=== PATIENT | male | born 1985 | race Caucasian/White ===

== ENCOUNTER 2018-05-03 17:54 | Emergency (ER) | payer OTHER ==
[2018-05-03 18:03] VITALS: BP 119/71; PULSE 77; RESP 18; TEMP 98.6
--- NOTE | 2018-05-03 18:36 | XR ---
EXAMINATION TYPE: XR wrist complete RT DATE OF EXAM: 05/03/2018 CLINICAL HISTORY: Right wrist pain after punching a door TECHNIQUE: Frontal, lateral and oblique images of the right wrist are obtained. COMPARISON: None FINDINGS: There is no acute fracture/dislocation evident in the right wrist. The joint spaces appea r within normal limits. The overlying soft tissue appears unremarkable. Remote fracture of the dista l radius. IMPRESSION: There is no acute fracture or dislocation
--- NOTE | 2018-05-03 18:37 | XR ---
EXAMINATION TYPE: XR hand complete RT DATE OF EXAM: 05/03/2018 CLINICAL HISTORY: Right hand pain after punching a door TECHNIQUE: Frontal, lateral and oblique images of the right hand are obtained. COMPARISON: None. FINDINGS: There is no acute fracture/dislocation evident. The joint spaces appear within normal limi ts. The overlying soft tissue appears unremarkable. IMPRESSION: There is no acute fracture or dislocation.
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
== END 2018-05-03 18:58 | disposition home or self-care (01) ==
LOC: EC 17:54
DX: S60.221A Contusion of right hand, initial encounter (principal); F17.200 Nicotine dependence, unspecified, uncomplicated; W22.01XA Walked into wall, initial encounter
CPT/HCPCS: 29125; 99283

== ENCOUNTER 2019-02-01 16:32 | Emergency (ER) | payer OTHER ==
[2019-02-01] MEDS ORDERED: KETOROLAC 30 MG/ML 1 ML VIAL IVP STA (16:55)
[2019-02-01] MEDS ORDERED: SODIUM CHLORIDE 0.9% 1,000 ML IV STA (16:55)
--- NOTE | 2019-02-01 17:02 | ED ---
Chest Pain HPI - General Chief Complaint: Chest Pain Stated Complaint: chest pain Time Seen by Provider: 02/01/19 16:44 Source: patient, RN notes reviewed Mode of arrival: ambulatory Limitations: no limitations - History of Present Illness Initial Comments: This is a 33-year-old male with a benign past history but a family history of heart disease whereby he states his biological father in his 40s of an AL who presents with complaints of about 3 weeks of intermittent episodes of sharp poking light left-sided chest pain. Several lists I was not left side of his shoulder and axillary area into his chest and down his left arm. He sees nothing he can do makes it worse or better he denies any fevers chills nausea vomiting sweats any loss of function to his upper or lower extremities he states at its worse is 10/10 currently about 8/10. He states he is able to reproduce it by pushing in certain areas which does include the left costal chondral margin as well as the pectoralis muscles and trapezius musculature. 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 He is dominant right-handed no other modifying factors at this time. MD Complaint: chest pain - Related Data Home Medications Medication Instructions Recorded Confirmed Aspirin 650 mg PO ONCE PRN 02/01/19 02/01/19 Previous Rx's Medication Instructions Recorded Ibuprofen 800 mg PO Q6HR PRN #20 tablet 02/01/19 Allergies Allergy/AdvReac Type Severity Reaction Status Date / Time No Known Allergies Allergy Verified 02/01/19 16:43 Review of Systems ROS Statement: Those systems with pertinent positive or pertinent negative responses have been documented in the HPI. ROS Other: All systems not noted in ROS Statement are negative. EKG Findings - EKG Results: EKG: interpreted by [facility] WNL, sinus rhythm, normal axis, normal QRS, normal ST/T, no acute changes (Normal sinus rhythm a 73 appear interval 134 QRS duration 84 QT since QTC 374/[address]-T wave changes.) Past Medical History Past Medical History: No Reported History History of Any Multi-Drug Resistant Organisms: None Reported Past Surgical History: No Surgical Hx Reported Past Psychological History: No Psychological Hx Reported Smoking Status: Current every day smoker Past Alcohol Use History: Occasional Past Drug Use History: Marijuana General Exam Limitations: no limitations Course Vital Signs 02/01/19 02/01/19 16:34 17:36 Temperature 98.5 F 98.4 F Pulse Rate 83 65 Respiratory 16 20 Rate Blood Pressure 132/80 123/86 O2 Sat by Pulse 96 97 Oximetry Procedures - Smoking Cessation Time Spent Discussing Smoking Cessation w/Patient (Minutes): 3 Patient Acknowledges Need for Cessation: Yes Chest Pain MDM - MDM I did review the imaging and report no acute findings. Patient is feeling improved after medication was rendered the presentation at this time is consistent with musculoskeletal chest pain. He will be discharged I did recommend follow-up with cardiology for further evaluation however. He is in agreement with this also did discuss smoking cessation again. Disposition Clinical Impression: Unstable angina pectoris, Costochondritis, Smoking Disposition: HOME SELF-CARE Condition: Good Instructions (If sedation given, give patient instructions): Costochondritis (ED), How to Stop Smoking (ED) Prescriptions: Ibuprofen 800 mg PO Q6HR PRN #20 tablet PRN Reason: Pain Is patient prescribed a controlled substance at d/c from ED?: No Referrals: None,Stated [Primary Care Provider] - 1-2 days
[2019-02-01 17:29] LABS: Basophils # (A) 0.2 k/uL (0-0.2); Basophils % (A) 2 %; Eosinophils # (A) 0.3 k/uL (0-0.7); Eosinophils % (A) 4 %; HCT 45.9 % (39.0-53.0); HGB 16.2 gm/dL (13.0-17.5); Lymphocytes # (A) 1.7 k/uL (1.0-4.8); Lymphocytes % (A) 25 %; MCH 32.3 pg (25.0-35.0); MCHC 35.3 g/dL (31.0-37.0); MCV 91.4 fL (80.0-100.0); Mean Platelet Volume 6.8; Monocytes # (A) 0.5 k/uL (0-1.0); Monocytes % (A) 8 %; Neutrophils % (A) 58 %; Platelet Count 343 k/uL (150-450); RBC 5.03 m/uL (4.30-5.90); RDW 12.3 % (11.5-15.5); WBC 6.9 k/uL (3.8-10.6)
[2019-02-01 17:41] LABS: ALT 19 U/L (21-72); AST 32 U/L (17-59); African American GFR (CKD) >90 (>60 ml/min/1.73 sqM); Albumin 4.5 g/dL (3.5-5.0); Alkaline Phosphatase 53 U/L (38-126); Anion Gap 10 mmol/L; Blood Urea Nitrogen 17 mg/dL (9-20); Calcium 9.6 mg/dL (8.4-10.2); Carbon Dioxide 22 mmol/L (22-30); Chloride 106 mmol/L (98-107); Creatine Kinase 196 U/L (55-170); Glucose 99 mg/dL (74-99); Magnesium 2.1 mg/dL (1.6-2.3); Sodium 138 mmol/L (137-145); Total Bilirubin 0.7 mg/dL (0.2-1.3); Total Protein 7.4 g/dL (6.3-8.2)
[2019-02-01 17:45] VITALS: TEMP 98.4
[2019-02-01 17:46] LABS: Potassium 4.4 mmol/L (3.5-5.1)
[2019-02-01 17:48] LABS: D-Dimer <0.17 mg/L FEU (<0.60); Partial Thromboplastin Time 22.5 sec (22.0-30.0); Prothrombin Time 10.3 sec (9.0-12.0)
--- NOTE | 2019-02-01 17:53 | XR ---
EXAMINATION TYPE: XR chest 2V DATE OF EXAM: 02/01/2019 COMPARISON: None HISTORY: Chest pain TECHNIQUE: Frontal and lateral views of the chest are obtained. FINDINGS: Heart and mediastinum are normal. Lungs are clear. Diaphragm is normal. Bony thorax appear s normal. There are chest leads. IMPRESSION: Normal chest
[2019-02-01 19:11] VITALS: BP 124/87; PULSE 62; RESP 18
--- NOTE | 2019-02-01 19:13 | ED ---
Medical Decision Making - Lab Data Result diagrams: 02/01/19 17:15 02/01/19 17:15 Lab Results 02/01/19 02/01/19 02/01/19 Range/Units 17:15 17:15 17:15 WBC 6.9 (3.8-10.6) k/uL RBC 5.03 (4.30-5.90) m/uL Hgb 16.2 (13.0-17.5) gm/dL Hct 45.9 (39.0-53.0) % MCV 91.4 (80.0-100.0) fL MCH 32.3 (25.0-35.0) pg MCHC 35.3 (31.0-37.0) g/dL RDW 12.3 (11.5-15.5) % Plt Count 343 (150-450) k/uL Neutrophils % 58 % Lymphocytes % 25 % Monocytes % 8 % Eosinophils % 4 % Basophils % 2 % Neutrophils # 4.0 (1.3-7.7) k/uL Lymphocytes # 1.7 (1.0-4.8) k/uL Monocytes # 0.5 (0-1.0) k/uL Eosinophils # 0.3 (0-0.7) k/uL Basophils # 0.2 (0-0.2) k/uL PT 10.3 (9.0-12.0) sec INR 1.0 (<1.2) APTT 22.5 (22.0-30.0) sec D-Dimer <0.17 (<0.60) mg/L FEU Sodium 138 (137-145) mmol/L Potassium 4.4 (3.5-5.1) mmol/L Chloride 106 (98-107) mmol/L Carbon Dioxide 22 (22-30) mmol/L Anion Gap 10 mmol/L BUN 17 (9-20) mg/dL Creatinine 0.83 (0.66-1.25) mg/dL Est GFR (CKD-EPI)AfAm >90 (>60 ml/min/1.73 sqM) Est GFR (CKD-EPI)NonAf >90 (>60 ml/min/1.73 sqM) Glucose 99 (74-99) mg/dL Calcium 9.6 (8.4-10.2) mg/dL Magnesium 2.1 (1.6-2.3) mg/dL Total Bilirubin 0.7 (0.2-1.3) mg/dL AST 32 (17-59) U/L ALT 19 L (21-72) U/L Alkaline Phosphatase 53 (38-126) U/L Creatine Kinase 196 H (55-170) U/L Troponin I (0.000-0.034) ng/mL NT-Pro-B Natriuret Pep pg/mL Total Protein 7.4 (6.3-8.2) g/dL Albumin 4.5 (3.5-5.0) g/dL Lipase 109 (23-300) U/L 02/01/19 02/01/19 Range/Units 17:15 17:15 WBC (3.8-10.6) k/uL RBC (4.30-5.90) m/uL Hgb (13.0-17.5) gm/dL Hct (39.0-53.0) % MCV (80.0-100.0) fL MCH (25.0-35.0) pg MCHC (31.0-37.0) g/dL RDW (11.5-15.5) % Plt Count (150-450) k/uL Neutrophils % % Lymphocytes % % Monocytes % % Eosinophils % % Basophils % % Neutrophils # (1.3-7.7) k/uL Lymphocytes # (1.0-4.8) k/uL Monocytes # (0-1.0) k/uL Eosinophils # (0-0.7) k/uL Basophils # (0-0.2) k/uL PT (9.0-12.0) sec INR (<1.2) APTT (22.0-30.0) sec D-Dimer (<0.60) mg/L FEU Sodium (137-145) mmol/L Potassium (3.5-5.1) mmol/L Chloride (98-107) mmol/L Carbon Dioxide (22-30) mmol/L Anion Gap mmol/L BUN (9-20) mg/dL Creatinine (0.66-1.25) mg/dL Est GFR (CKD-EPI)AfAm (>60 ml/min/1.73 sqM) Est GFR (CKD-EPI)NonAf (>60 ml/min/1.73 sqM) Glucose (74-99) mg/dL Calcium (8.4-10.2) mg/dL Magnesium (1.6-2.3) mg/dL Total Bilirubin (0.2-1.3) mg/dL AST (17-59) U/L ALT (21-72) U/L Alkaline Phosphatase (38-126) U/L Creatine Kinase (55-170) U/L Troponin I <0.012 (0.000-0.034) ng/mL NT-Pro-B Natriuret Pep 27 pg/mL Total Protein (6.3-8.2) g/dL Albumin (3.5-5.0) g/dL Lipase (23-300) U/L Disposition Clinical Impression: Unstable angina pectoris, Costochondritis, Smoking Disposition: HOME SELF-CARE Condition: Good Instructions (If sedation given, give patient instructions): How to Stop Smoking (ED), Costochondritis (ED) Prescriptions: Ibuprofen 800 mg PO Q6HR PRN #20 tablet PRN Reason: Pain Is patient prescribed a controlled substance at d/c from ED?: No Referrals: None,Stated [Primary Care Provider] - 1-2 days El Shearer MD [STAFF PHYSICIAN] - 1-2 days
== END 2019-02-01 19:16 | disposition home or self-care (01) ==
LOC: EC 16:32
DX: I20.0 Unstable angina (principal); M94.0 Chondrocostal junction syndrome [Tietze]; F17.200 Nicotine dependence, unspecified, uncomplicated; Z71.6 Tobacco abuse counseling
CPT/HCPCS: 36415; 93005; 85379; 83880; 80053; 82550; 83690; 83735; 84484; 85025; 85610; 85730; 71046; 99285; 96374; 96361 ×2; J1885

== ENCOUNTER 2019-06-01 22:36 | Inpatient (IN) | payer MEDICAID, OTHER ==
--- NOTE | 2019-06-01 23:00 | ED ---
Psych HPI - General Chief Complaint: Psychiatric Symptoms Stated Complaint: Mental Health Time Seen by Provider: 06/01/19 22:43 Source: patient Mode of arrival: ambulatory - History of Present Illness Initial Comments: This 34-year-old white male presents for psychiatric issues. He states that he has been very paranoid recently. He has felt very anxious and has had flight of thoughts. He states that he moved into a house that used to be a drug/chair when house and has been cleaning excessively. He has barely been able to sleep. He denies any depression or suicidal or homicidal ideations. He states that he has been hearing some voices and is convinced that they are really there. He denies any visual hallucinations. He denies any alcohol abuse. He does smoke tobacco and marijuana but denies any other drug use. He denies any known psychiatric conditions and does not take any psychiatric medications. He states that he had one previous hospitalization when he was 21 years old after he apparently experimented with some cocaine. He denies any current medical issues. No other modifying factors or complaints. - Related Data Home Medications Medication Instructions Recorded Confirmed Aspirin 650 mg PO ONCE PRN 02/01/19 02/01/19 Previous Rx's Medication Instructions Recorded Ibuprofen 800 mg PO Q6HR PRN #20 tablet 02/01/19 Allergies Allergy/AdvReac Type Severity Reaction Status Date / Time No Known Allergies Allergy Verified 02/01/19 16:43 Review of Systems ROS Statement: Those systems with pertinent positive or pertinent negative responses have been documented in the HPI. ROS Other: All systems not noted in ROS Statement are negative. Past Medical History Past Medical History: No Reported History History of Any Multi-Drug Resistant Organisms: None Reported Past Surgical History: No Surgical Hx Reported Additional Past Surgical History / Comment(s): tendon surgery Past Psychological History: ADD/ADHD, PTSD Smoking Status: Current every day smoker Past Alcohol Use History: Occasional Past Drug Use History: Marijuana General Exam - General Exam Comments Initial Comments: GENERAL: The patient is well nourished and well hydrated. VITAL SIGNS: Heart rate, blood pressure, respiratory rate reviewed as recorded in nurse's notes. EYES: Pupils are round and reactive. Extraocular movements are intact. No conjunctival / lid redness or swelling. ENT: No external evidence of injury, swelling, or ecchymosis. Airway is patent. Throat is clear. NECK: Nontender. No swelling or evidence of injury. No subcutaneous emphysema. Trachea is midline. No thyroid mass. HEART: Regular rate and rhythm. Good peripheral pulses. LUNGS/CHEST: Breath sounds clear and equal bilaterally. No rales, rhonchi, or wheezes. No ecchymosis, subcutaneous emphysema, or tenderness. ABDOMEN: Abdomen soft without tenderness. No palpable masses or organomegaly. No peritoneal signs. No abdominal wall swelling or ecchymosis. EXTREMITIES: No extremity tenderness. Normal muscle tone and function. No thoracolumbar tenderness. NEUROLOGIC: Sensation is grossly intact. Cranial nerve exam reveals face is symmetrical, tongue is midline, speech is clear. SKIN: No abrasions or ecchymosis is noted. No induration or masses noted. PSYCHIATRIC: Alert and oriented. Appears anxious but is cooperative. Limitations: no limitations Course Vital Signs 06/01/19 22:37 Temperature 98.1 F Pulse Rate 100 Respiratory 16 Rate Blood Pressure 146/88 O2 Sat by Pulse 97 Oximetry Medical Decision Making - Medical Decision Making The patient is seen and examined. He had a negative breath alcohol test. It is felt as though he is medically cleared for further psychiatric evaluation. The urine drug screen is positive for marijuana and amphetamines. The patient is sleeping on recheck. The psychiatric nurse did evaluate the patient and they would like to admit him to the hospital for further treatment. It is felt as though this is reasonable. - Lab Data Lab Results 06/01/19 Range/Units 22:47 Urine Opiates Screen Not Detected (NotDetected) Ur Oxycodone Screen Not Detected (NotDetected) Urine Methadone Screen Not Detected (NotDetected) Ur Propoxyphene Screen Not Detected (NotDetected) Ur Barbiturates Screen Not Detected (NotDetected) U Tricyclic Antidepress Not Detected (NotDetected) Ur Phencyclidine Scrn Not Detected (NotDetected) Ur Amphetamines Screen Detected H (NotDetected) U Methamphetamines Scrn Not Detected (NotDetected) U Benzodiazepines Scrn Not Detected (NotDetected) Urine Cocaine Screen Not Detected (NotDetected) U Marijuana (THC) Screen Detected H (NotDetected) Disposition Clinical Impression: Acute anxiety, Psychosis, Paranoia, Marijuana abuse, Amphetamine abuse Disposition: ADMITTED IP TO THIS HOSP Condition: Fair Is patient prescribed a controlled substance at d/c from ED?: No Time of Disposition: : Decision Date: 06/02/19 Decision Time:
[2019-06-01 23:20] LABS: Amphetamine Screen,Urine Detected (NotDetected); Cocaine Screen,Urine Not Detected (NotDetected); Opiate Screen,Urine Not Detected (NotDetected); Phencyclidine Screen,Urine Not Detected (NotDetected); Urn Cannabinoid Scrn Detected (NotDetected)
[2019-06-01 23:21] LABS: Barbiturate Screen,Urine Not Detected (NotDetected); Benzodiazepines Screen,Urine Not Detected (NotDetected); Methadone Screen, Urine Not Detected (NotDetected); Oxycodone Screen, Urine Not Detected (NotDetected); Tricyclic Antidepressant,Urine Not Detected (NotDetected)
[2019-06-02] MEDS ORDERED: LORazepam 1 MG TAB PO PRN (02:01)
[2019-06-02] MEDS ORDERED: MAG HYDROX/AL HYDROX/SIMETH 30 ML CUP PO PRN (02:01)
[2019-06-02] MEDS ORDERED: ZIPRASIDONE 20 MG VIAL IM PRN (02:01)
[2019-06-02] MEDS ORDERED: ACETAMINOPHEN TAB 325 MG TAB PO PRN (02:01)
[2019-06-02] MEDS ORDERED: MAGNESIUM HYDROXIDE 2,400 MG/10 ML CUP PO PRN (02:01)
[2019-06-02 08:09] LABS: Basophils # (A) 0.1 k/uL (0-0.2); Basophils % (A) 1 %; Eosinophils # (A) 0.6 k/uL (0-0.7); Eosinophils % (A) 5 %; HCT 48.5 % (39.0-53.0); HGB 16.4 gm/dL (13.0-17.5); Lymphocytes % (A) 16 %; MCH 31.1 pg (25.0-35.0); MCHC 33.9 g/dL (31.0-37.0); MCV 91.7 fL (80.0-100.0); Mean Platelet Volume 6.6; Monocytes # (A) 0.8 k/uL (0-1.0); Monocytes % (A) 7 %; Neutrophils # (A) 8.3 k/uL (1.3-7.7); Neutrophils % (A) 69 %; Platelet Count 399 k/uL (150-450); RBC 5.29 m/uL (4.30-5.90); RDW 12.3 % (11.5-15.5)
[2019-06-02 08:28] LABS: ALT 64 U/L (4-49); AST 83 U/L (17-59); African American GFR (CKD) >90 (>60 ml/min/1.73 sqM); Albumin 4.8 g/dL (3.5-5.0); Alkaline Phosphatase 63 U/L (38-126); Anion Gap 9 mmol/L; Bilirubin, Delta 0.3 mg/dL (0.0-0.2); Bilirubin,Unconjugated 0.4 mg/dL (0.0-1.1); Blood Urea Nitrogen 22 mg/dL (9-20); Calcium 9.7 mg/dL (8.4-10.2); Carbon Dioxide 30 mmol/L (22-30); Chloride 101 mmol/L (98-107); Cholesterol 106 mg/dL (<200); Glucose 86 mg/dL (74-99); HDL Cholesterol 62 mg/dL (40-60); LDL Cholesterol,Calculated 35 mg/dL (0-99); Non-African American GFR(CKD) >90 (>60 ml/min/1.73 sqM); Potassium 4.1 mmol/L (3.5-5.1); Sodium 140 mmol/L (137-145); Total Bilirubin 0.7 mg/dL (0.2-1.3); Total Protein 7.8 g/dL (6.3-8.2); Triglycerides 46 mg/dL (<150)
[2019-06-02] MEDS ORDERED: INFLUENZA VACCINE (6 MOS+) 60 MCG/0.5 ML SYRINGE IM ONE (09:00)
--- NOTE | 2019-06-02 13:35 | P.HP ---
Psychiatric H&P - . H&P Date: 06/02/19 History & Physical: I reviewed the medical record and attempted to interview the patient. He refused to get out of bed for interview this morning. He complained that he was "tired". I pushed him again in the afternoon. He was laying in bed. He refused to acknowledge me, open his eyes or respond to my questions. I will try again tomorrow to obtain admission history. His presentation is consistent with a history of amphetamine use disorder. I reviewed the MAPS and he has been prescribed Adderall by a PCP. Allergies Allergy/AdvReac Type Severity Reaction Status Date / Time No Known Allergies Allergy Verified 06/02/19 05:41 Vital Signs Temp 97.7 F 06/02/19 02:22 Pulse 74 06/02/19 03:02 Resp 18 06/02/19 03:02 BP 118/80 06/02/19 03:02 Pulse Ox 96 06/02/19 03:02 Intake & Output 06/01/19 06/02/19 06/02/19 18:59 06:59 18:59 Weight 59.052 kg Laboratory Last Values WBC 12.0 k/uL (3.8-10.6) H 06/02/19 07:49 RBC 5.29 m/uL (4.30-5.90) 06/02/19 07:49 Hgb 16.4 gm/dL (13.0-17.5) 06/02/19 07:49 Hct 48.5 % (39.0-53.0) 06/02/19 07:49 MCV 91.7 fL (80.0-100.0) 06/02/19 07:49 MCH 31.1 pg (25.0-35.0) 06/02/19 07:49 MCHC 33.9 g/dL (31.0-37.0) 06/02/19 07:49 RDW 12.3 % (11.5-15.5) 06/02/19 07:49 Plt Count 399 k/uL (150-450) 06/02/19 07:49 Neutrophils % 69 % 06/02/19 07:49 Lymphocytes % 16 % 06/02/19 07:49 Monocytes % 7 % 06/02/19 07:49 Eosinophils % 5 % 06/02/19 07:49 Basophils % 1 % 06/02/19 07:49 Neutrophils # 8.3 k/uL (1.3-7.7) H 06/02/19 07:49 Lymphocytes # 2.0 k/uL (1.0-4.8) 06/02/19 07:49 Monocytes # 0.8 k/uL (0-1.0) 06/02/19 07:49 Eosinophils # 0.6 k/uL (0-0.7) 06/02/19 07:49 Basophils # 0.1 k/uL (0-0.2) 06/02/19 07:49 Sodium 140 mmol/L (137-145) 06/02/19 07:49 Potassium 4.1 mmol/L (3.5-5.1) 06/02/19 07:49 Chloride 101 mmol/L (98-107) 06/02/19 07:49 Carbon Dioxide 30 mmol/L (22-30) 06/02/19 07:49 Anion Gap 9 mmol/L 06/02/19 07:49 BUN 22 mg/dL (9-20) H 06/02/19 07:49 Creatinine 0.94 mg/dL (0.66-1.25) 06/02/19 07:49 Est GFR (CKD-EPI)AfAm >90 (>60 ml/min/1.73 sqM) 06/02/19 07:49 Est GFR (CKD-EPI)NonAf >90 (>60 ml/min/1.73 sqM) 06/02/19 07:49 Glucose 86 mg/dL (74-99) 06/02/19 07:49 Calcium 9.7 mg/dL (8.4-10.2) 06/02/19 07:49 Total Bilirubin 0.7 mg/dL (0.2-1.3) 06/02/19 07:49 Conjugated Bilirubin 0.0 mg/dL (0.0-0.3) 06/02/19 07:49 Unconjugated Bilirubin 0.4 mg/dL (0.0-1.1) 06/02/19 07:49 Delta Bilirubin 0.3 mg/dL (0.0-0.2) H 06/02/19 07:49 AST 83 U/L (17-59) H 06/02/19 07:49 ALT 64 U/L (4-49) H 06/02/19 07:49 Alkaline Phosphatase 63 U/L (38-126) 06/02/19 07:49 Total Protein 7.8 g/dL (6.3-8.2) 06/02/19 07:49 Albumin 4.8 g/dL (3.5-5.0) 06/02/19 07:49 Triglycerides 46 mg/dL (<150) 06/02/19 07:49 Cholesterol 106 mg/dL (<200) 06/02/19 07:49 LDL Cholesterol, Calc 35 mg/dL (0-99) 06/02/19 07:49 HDL Cholesterol 62 mg/dL (40-60) H 06/02/19 07:49 TSH 0.670 mIU/L (0.465-4.680) 06/02/19 07:49 Urine Opiates Screen Not Detected (NotDetected) 06/01/19 22:47 Ur Oxycodone Screen Not Detected (NotDetected) 06/01/19 22:47 Urine Methadone Screen Not Detected (NotDetected) 06/01/19 22:47 Ur Propoxyphene Screen Not Detected (NotDetected) 06/01/19 22:47 Ur Barbiturates Screen Not Detected (NotDetected) 06/01/19 22:47 U Tricyclic Antidepress Not Detected (NotDetected) 06/01/19 22:47 Ur Phencyclidine Scrn Not Detected (NotDetected) 06/01/19 22:47 Ur Amphetamines Screen Detected (NotDetected) H 06/01/19 22:47 U Methamphetamines Scrn Not Detected (NotDetected) 06/01/19 22:47 U Benzodiazepines Scrn Not Detected (NotDetected) 06/01/19 22:47 Urine Cocaine Screen Not Detected (NotDetected) 06/01/19 22:47 U Marijuana (THC) Screen Detected (NotDetected) H 06/01/19 22:47 06/02/19 13:34
[2019-06-02 19:16] LABS: Hemoglobin A1C 5.5 % (4.0-6.0)
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
[2019-06-02] MEDS: NICOTINE 21MG/24HR PATCH TRANSDERM SCH (19:33)
[2019-06-03] MEDS: NICOTINE 21MG/24HR PATCH TRANSDERM SCH (08:03)
[2019-06-03 10:42] LABS: HCT 45.4 % (39.0-53.0); HGB 15.6 gm/dL (13.0-17.5); MCH 31.6 pg (25.0-35.0); MCHC 34.5 g/dL (31.0-37.0); MCV 91.8 fL (80.0-100.0); Platelet Count 363 k/uL (150-450); RBC 4.94 m/uL (4.30-5.90); RDW 12.2 % (11.5-15.5)
[2019-06-03 10:49] LABS: ALT 45 U/L (4-49); AST 47 U/L (17-59); African American GFR (CKD) >90 (>60 ml/min/1.73 sqM); Alkaline Phosphatase 57 U/L (38-126); Anion Gap 9 mmol/L; Blood Urea Nitrogen 21 mg/dL (9-20); Calcium 9.1 mg/dL (8.4-10.2); Carbon Dioxide 28 mmol/L (22-30); Chloride 101 mmol/L (98-107); Glucose 143 mg/dL (74-99); Non-African American GFR(CKD) >90 (>60 ml/min/1.73 sqM); Potassium 4.1 mmol/L (3.5-5.1); Sodium 138 mmol/L (137-145); Total Bilirubin 0.5 mg/dL (0.2-1.3); Total Protein 6.3 g/dL (6.3-8.2)
[2019-06-03 16:33] LABS: Hepatitis A Antibody IgM Non-Reactive (Non-Reactive); Hepatitis B Core IgM Non-Reactive (Non-Reactive); Hepatitis B Surface Antigen Non-Reactive (Non-Reactive); Hepatitis C IgG Antibody Non-Reactive (Non-Reactive)
[2019-06-03] MEDS: OLANZapine 2.5 MG TAB PO SCH (21:04)
[2019-06-04] MEDS: NICOTINE 21MG/24HR PATCH TRANSDERM SCH ×2 (09:36→11:35)
--- NOTE | 2019-06-04 14:12 | P.PN ---
Subjective Progress Note Date: 06/04/19 Principal diagnosis: Amphetamine induced psychotic disorder, rule out delusional disorder, rule out schizophrenia, rule out schizoaffective disorder, rule out amphetamine use disorder, ADHD by history, tobacco use I reviewed the medical record, interviewed the patient and discuss his treatment and treatment plan during team meeting. He has remained in his room interacting and frequent staff or peers. He has not attended therapeutic groups or activities. Today, his only concern was discharge. He complained that he needs to return to work. He alleged that he slept well last night. He was not preoccupied about the circumstances that led to the hospitalization. We asked about his presenting complaints he replied that he was "probably confused". He did not object to my opinion that his presentation was related to his use of Adderall. He reports feeling somewhat sedated after taking the at bedtime dose of Zyprexa. Objective - Vital Signs Vital signs: Vital Signs Temp 97.5 F L 06/04/19 07:02 Pulse 51 L 06/04/19 07:02 Resp 16 06/04/19 07:02 BP 95/51 06/04/19 07:02 Pulse Ox 96 06/02/19 03:02 - Exam Presented as a thin casually groomed 34-year-old male who was pleasant on approach. He made eye contact and attended to interview. He has not blunted facial expression. He was alert and oriented to person, place and time. He chaka wed no abnormality of psychomotor activity. Speech shows slow with decreased volume and rhythm. His affect was blunted but stable and appropriate. She denied suicidal ideation or wishes. He denied homicidal ideation. He denied feeling hopeless, helpless or worthless. He did not express clear paranoid ideation, ideas reference, magical ideation or delusional thoughts. His thinking was abstract and associations were coherent and logical. He denied hallucinations and did not appear to be responding to internal stimuli. - Labs CBC & Chem 7: 06/03/19 09:51 06/03/19 09:51 Assessment and Plan Assessment: His overall paranoia has decreased markedly from admission. Apparently certain that the paranoia, agitation and ideas reference with a result of amphetamine use. Plan: Continue current treatment and treatment plan. Continue Zyprexa 2.5 mg at bedtime. Recommend that he not continue Adderall. Plan for discharge on 06/05/2019.
[2019-06-04] MEDS: OLANZapine 2.5 MG TAB PO SCH ×3 (21:38→21:45)
[2019-06-05 07:12] VITALS: BP 92/53; PULSE 52; RESP 14; TEMP 97.6
[2019-06-05] MEDS: NICOTINE 21MG/24HR PATCH TRANSDERM SCH ×2 (08:56→09:08)
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
== END 2019-06-05 13:45 | disposition home or self-care (01) | DRG 641 ==
LOC: EC 22:36 → 3MHU 06-02 01:56
PROVIDERS: ADMIT Psychiatry & Neurology Psychiatry; ATTEND Psychiatry & Neurology Psychiatry
DX: E86.0 Dehydration (principal); F15.259 Other stimulant dependence with stimulant-induced psychotic disorder, unspecified; F90.9 Attention-deficit hyperactivity disorder, unspecified type; F12.10 Cannabis abuse, uncomplicated; F43.10 Post-traumatic stress disorder, unspecified; Z23 Encounter for immunization; M79.641 Pain in right hand; D72.829 Elevated white blood cell count, unspecified; R94.4 Abnormal results of kidney function studies; F17.210 Nicotine dependence, cigarettes, uncomplicated; Z71.6 Tobacco abuse counseling; Z81.8 Family history of other mental and behavioral disorders
CPT/HCPCS: 80053; 80061; 80074; 80306; 82075; 82248; 83036; 84443; 85025; 85027; 99285

== ENCOUNTER 2019-07-01 19:50 | Emergency (ER) | payer OTHER ==
[2019-07-01 19:55] VITALS: BP 121/86; PULSE 108; RESP 18; TEMP 97.7
[2019-07-01] MEDS ORDERED: CYCLOBENZAPRINE 10 MG TAB PO STA (20:12)
[2019-07-01] MEDS ORDERED: KETOROLAC 30 MG/ML 1 ML VIAL IM STA (20:12)
--- NOTE | 2019-07-01 20:20 | ED ---
General Adult HPI - General Chief complaint: Back Pain/Injury Stated complaint: Back Pain Time Seen by Provider: 07/01/19 20:01 Source: patient Mode of arrival: ambulatory Limitations: no limitations - History of Present Illness Initial comments: 34-year-old male patient presents to the emergency department today for evaluation of right shoulder pain. Patient states that he has been having pain for the last 2 hours. Denies any injury. States that he feels like his shoulder may be dislocated. States he has had dislocations in the past. Patient states that his right upper back is very tender to the touch and feels like he is having a muscle spasm. Denies any shortness of breath or chest pain. Denies fever or chills. Denies taking any medication for his symptoms. Patient denies any headache, neck pain, dizziness, weakness, abdominal pain, nausea, vomiting, or difficulties with bowel movements or urination. - Related Data Home Medications Medication Instructions Recorded Confirmed Aspirin 650 mg PO ONCE PRN 02/01/19 06/05/19 Previous Rx's Medication Instructions Recorded Ibuprofen 800 mg PO Q6HR PRN #20 tablet 02/01/19 OLANZapine [ZyPREXA] 2.5 mg PO HS #30 tab 06/05/19 Cyclobenzaprine [Flexeril] 10 mg PO TID #15 tab 07/01/19 Ibuprofen [Motrin] 600 mg PO Q8HR PRN #30 tab 07/01/19 Allergies Allergy/AdvReac Type Severity Reaction Status Date / Time No Known Allergies Allergy Verified 06/02/19 05:41 Review of Systems ROS Statement: Those systems with pertinent positive or pertinent negative responses have been documented in the HPI. ROS Other: All systems not noted in ROS Statement are negative. Past Medical History Past Medical History: No Reported History History of Any Multi-Drug Resistant Organisms: None Reported Past Surgical History: No Surgical Hx Reported Additional Past Surgical History / Comment(s): tendon surgery Past Psychological History: ADD/ADHD, Anxiety, PTSD Smoking Status: Current every day smoker Past Alcohol Use History: Occasional Past Drug Use History: Marijuana General Exam Limitations: no limitations General appearance: alert, in no apparent distress, anxious, other (Physical well-developed, well-nourished adult male patient who is quite anxious and agitated. Vital signs upon presentation are temperature 97.7F, pulse 108, res pirations 18, blood pressure 121/86, pulse ox 97% on room air.) ENT exam: Present: normal exam, normal oropharynx, mucous membranes moist Respiratory exam: Present: normal lung sounds bilaterally. Absent: respiratory distress, wheezes, rales, rhonchi, stridor Cardiovascular Exam: Present: regular rate, normal rhythm, normal heart sounds. Absent: systolic murmur, diastolic murmur, rubs, gallop, clicks Extremities exam: Present: full ROM, tenderness (Tenderness over the right upper trapezius and care a scapular muscles.), normal capillary refill, other (Skin to the right upper extremity is pink, warm, dry. Cap refills less than 3 seconds. Radial pulses 2+ and equal bilaterally.). Absent: pedal edema, joint swelling, calf tenderness Neurological exam: Present: alert, oriented X3, CN II-XII intact Psychiatric exam: Present: normal affect, normal mood Skin exam: Present: warm, dry, intact, normal color. Absent: rash Course Vital Signs 07/01/19 19:52 Temperature 97.7 F Pulse Rate 108 H Respiratory 18 Rate Blood Pressure 121/86 O2 Sat by Pulse 97 Oximetry Medical Decision Making - Medical Decision Making 34-year-old male patient presents to the emergency department today for evaluation of right shoulder and back pain. Physical examination reveals tenderness over the right posterior shoulder. Normal neurovascular status. Patient has full range of motion to the right arm. He is breathing without difficulty and denies chest pain. X-ray of the right shoulder was obtained and was unremarkable. Patient will be started on anti-inflammatory and muscle relaxers. He is instructed to follow-up with primary care physician for recheck in 1-2 days. Return parameters were discussed in detail. They verbalize understanding and agree with this plan. - Radiology Data Radiology results: report reviewed, image reviewed 3 views of the right shoulder obtained. Report is reviewed in its entirety. Impression by Dr. Sprague shows normal right shoulder. Disposition Clinical Impression: Muscle spasm Disposition: HOME SELF-CARE Condition: Good Instructions (If sedation given, give patient instructions): Muscle Spasm (ED), Shoulder Pain (ED) Additional Instructions: Take medications as directed. Apply warm moist heat to the area. Use [id number] muscle rubs for pain control. Follow-up with your primary care physician for recheck in 1-2 days. Return to the emergency department immediately for any new, worsening, or concerning symptoms. Prescriptions: Cyclobenzaprine [Flexeril] 10 mg PO TID #15 tab Ibuprofen [Motrin] 600 mg PO Q8HR PRN #30 tab PRN Reason: Pain Is patient prescribed a controlled substance at d/c from ED?: No Referrals: [facility] [NON-STAFF] - 1-2 days Time of Disposition: 20:55
--- NOTE | 2019-07-01 20:47 | XR ---
EXAMINATION TYPE: XR shoulder complete RT DATE OF EXAM: 07/01/2019 COMPARISON: NONE HISTORY: Shoulder pain TECHNIQUE: 3 views FINDINGS: There is no fracture nor dislocation. Joint spaces are normal. There are no pathologic calc ifications. IMPRESSION: Normal right shoulder.
== END 2019-07-01 21:01 | disposition home or self-care (01) ==
LOC: EC 19:50
DX: M62.838 Other muscle spasm (principal); M62.830 Muscle spasm of back; F17.200 Nicotine dependence, unspecified, uncomplicated; Z87.828 Personal history of other (healed) physical injury and trauma
CPT/HCPCS: 73030; 99283; 96372; J1885

== ENCOUNTER 2019-08-08 20:25 | Observation (INO) | payer OTHER ==
[2019-08-08] MEDS ORDERED: DIPH,PERTUS(ACELL)TETVAC-LF 0.5 ML VIAL IM ONE (21:08)
[2019-08-08] MEDS: SODIUM CHLORIDE 0.9% 500 ML 500 ML IV SCH ×2 (21:33→23:10)
--- NOTE | 2019-08-08 21:48 | XR ---
EXAMINATION TYPE: XR hand complete RT DATE OF EXAM: 08/08/2019 COMPARISON: 05/03/2018 HISTORY: Pain TECHNIQUE: Three views are submitted. FINDINGS: The osseous structures are intact. The joint spaces are preserved and there is no acute fracture or dislocation. Soft tissue injury noted. IMPRESSION: 1. No definite acute fracture or dislocation if symptoms persist, follow-up study in 7 to 10 days wo uld be suggested
[2019-08-08 21:57] LABS: Basophils # (A) 0.1 k/uL (0-0.2); Basophils % (A) 1 %; Eosinophils # (A) 0.1 k/uL (0-0.7); Eosinophils % (A) 1 %; HCT 43.4 % (39.0-53.0); Lymphocytes # (A) 1.6 k/uL (1.0-4.8); Lymphocytes % (A) 10 %; MCH 30.9 pg (25.0-35.0); MCHC 34.6 g/dL (31.0-37.0); MCV 89.4 fL (80.0-100.0); Mean Platelet Volume 6.4; Monocytes % (A) 6 %; Neutrophils # (A) 13.2 k/uL (1.3-7.7); Neutrophils % (A) 81 %; Platelet Count 376 k/uL (150-450); RBC 4.85 m/uL (4.30-5.90); RDW 12.4 % (11.5-15.5); WBC 16.3 k/uL (3.8-10.6)
[2019-08-08 22:03] LABS: Albumin 4.5 g/dL (3.5-5.0); C Reactive Protein 16.4 mg/L (<10.0); Calcium 9.3 mg/dL (8.4-10.2); Potassium 3.9 mmol/L (3.5-5.1); Total Bilirubin 0.3 mg/dL (0.2-1.3); Total Protein 7.5 g/dL (6.3-8.2)
[2019-08-08 22:46] LABS: Erythrocyte Sedimentation Rate 18 mm/hr (0-15)
[2019-08-08] MEDS ORDERED: VANCOMYCIN IV PER PHARMACY 1 EACH MISC MISCELLANE PRN (23:45)
[2019-08-08] MEDS ORDERED: ACETAMINOPHEN TAB 500 MG TAB PO STA (23:58)
[2019-08-09] MEDS: VANCOMYCIN 1,250 MG in SODIUM CHLORIDE 0.9% 250 ML IVPB STA ×2 (00:03→00:06)
[2019-08-09] MEDS ORDERED: ACETAMINOPHEN TAB 500 MG TAB PO STA (00:05)
[2019-08-09] MEDS ORDERED: NALOXONE 0.4 MG/ML 1 ML VIAL IV PRN (00:10)
[2019-08-09] MEDS ORDERED: ACETAMINOPHEN TAB 325 MG TAB PO PRN (00:10)
--- NOTE | 2019-08-09 00:17 | ED ---
General Adult HPI - General Chief complaint: Extremity Injury, Upper Stated complaint: Hand Lac Time Seen by Provider: 08/08/19 21:02 Source: patient, RN notes reviewed Mode of arrival: ambulatory Limitations: no limitations - History of Present Illness Initial comments: 34-year-old male presents to the emergency department for a chief complaint of injury to the right hand today. Patient states he thinks he cut his hand. States he is not sure exactly what he cut it with but is concerned it got to the tendon. States he has pain in the right hand. Denies any other complaints. Denies fevers or chills.Patient has no other complaints at this time including shortness of breath, chest pain, abdominal pain, nausea or vomiting, headache, or visual changes. - Related Data Home Medications Medication Instructions Recorded Confirmed Dextroamphetamine/Amphetamine 30 mg PO BID 08/08/19 08/08/19 [Adderall] Allergies Allergy/AdvReac Type Severity Reaction Status Date / Time No Known Allergies Allergy Verified 08/08/19 22:22 Review of Systems ROS Statement: Those systems with pertinent positive or pertinent negative responses have been documented in the HPI. ROS Other: All systems not noted in ROS Statement are negative. Past Medical History Past Medical History: No Reported History History of Any Multi-Drug Resistant Organisms: None Reported Past Surgical History: No Surgical Hx Reported Additional Past Surgical History / Comment(s): tendon surgery Past Psychological History: ADD/ADHD, Anxiety, PTSD Smoking Status: Current every day smoker Past Alcohol Use History: None Reported Past Drug Use History: Marijuana General Exam Limitations: no limitations General appearance: alert, in no apparent distress Head exam: Present: atraumatic, normocephalic, normal inspection Eye exam: Present: normal appearance, PERRL, EOMI. Absent: scleral icterus, conjunctival injection, periorbital swelling ENT exam: Present: normal exam, mucous membranes moist Neck exam: Present: normal inspection, full ROM. Absent: tenderness, meningismus, lymphadenopathy Respiratory exam: Present: normal lung sounds bilaterally. Absent: respiratory distress, wheezes, rales, rhonchi, stridor Cardiovascular Exam: Present: regular rate, normal rhythm, normal heart sounds. Absent: systolic murmur, diastolic murmur, rubs, gallop, clicks Extremities exam: Present: full ROM (Full range of motionOf the right hand), tenderness (Tenderness to the palmar aspect of the right second metacarpal as well as to the dorsum of the right hand.), normal capillary refill (Refill less than 2 seconds in all digits of the right hand. Radial pulses 2+.), other (Patient is some edema and erythema noted to the lateral aspect of the dorsum of the right hand. He does have pain with extension of the second digit.). Absent: pedal edema, joint swelling, calf tenderness Neurological exam: Present: alert Course Vital Signs 08/08/19 08/08/19 08/08/19 20:39 21:06 21:36 Temperature 99.0 F 99.1 F Pulse Rate 126 H 118 H Respiratory 20 Rate Blood Pressure 145/90 O2 Sat by Pulse 98 97 Oximetry 08/08/19 08/08/19 08/09/19 22:20 23:41 01:13 Temperature 100.8 F H 98.4 F Pulse Rate 102 H 104 H 80 Respiratory 18 18 18 Rate Blood Pressure 132/97 139/98 143/103 O2 Sat by Pulse 100 99 98 Oximetry Medical Decision Making - Medical Decision Making Vitals are stable however patient did develop a fever while in the emergency room. Physical exam is as documented. He does have some erythema to the dorsum of the right hand consistent with a cellulitis. He does have lymphangitic streaking from the right hand up to the right armpit. CBC shows leukocytosis at 16.3 with a left shift. ESR mildly elevated at 18. CRP 16.4. Patient developed a fever while in the emergency room as well. Patient adamantly denies any IV drug abuse. Denies any cat bites. At this time patient will be admitted for IV antibiotics. ID consulted - Lab Data Result diagrams: 08/08/19 21:30 08/08/19 21:30 Lab Results 08/08/19 08/08/19 08/08/19 Range/Units 21:30 21:30 21:30 WBC 16.3 H (3.8-10.6) k/uL RBC 4.85 (4.30-5.90) m/uL Hgb 15.0 (13.0-17.5) gm/dL Hct 43.4 (39.0-53.0) % MCV 89.4 (80.0-100.0) fL MCH 30.9 (25.0-35.0) pg MCHC 34.6 (31.0-37.0) g/dL RDW 12.4 (11.5-15.5) % Plt Count 376 (150-450) k/uL Neutrophils % 81 % Lymphocytes % 10 % Monocytes % 6 % Eosinophils % 1 % Basophils % 1 % Neutrophils # 13.2 H (1.3-7.7) k/uL Lymphocytes # 1.6 (1.0-4.8) k/uL Monocytes # 1.0 (0-1.0) k/uL Eosinophils # 0.1 (0-0.7) k/uL Basophils # 0.1 (0-0.2) k/uL ESR 18 H (0-15) mm/hr Sodium 135 L (137-145) mmol/L Potassium 3.9 (3.5-5.1) mmol/L Chloride 98 (98-107) mmol/L Carbon Dioxide 28 (22-30) mmol/L Anion Gap 9 mmol/L BUN 15 (9-20) mg/dL Creatinine 1.35 H (0.66-1.25) mg/dL Est GFR (CKD-EPI)AfAm 79 (>60 ml/min/1.73 sqM) Est GFR (CKD-EPI)NonAf 68 (>60 ml/min/1.73 sqM) Glucose 98 (74-99) mg/dL Plasma Lactic Acid Kayden 1.1 (0.7-2.0) mmol/L Calcium 9.3 (8.4-10.2) mg/dL Total Bilirubin 0.3 (0.2-1.3) mg/dL AST 33 (17-59) U/L ALT 33 (4-49) U/L Alkaline Phosphatase 84 (38-126) U/L C-Reactive Protein 16.4 H (<10.0) mg/L Total Protein 7.5 (6.3-8.2) g/dL Albumin 4.5 (3.5-5.0) g/dL Coronavirus (PCR) (Not Detectd) 08/09/19 Range/Units 00:30 WBC (3.8-10.6) k/uL RBC (4.30-5.90) m/uL Hgb (13.0-17.5) gm/dL Hct (39.0-53.0) % MCV (80.0-100.0) fL MCH (25.0-35.0) pg MCHC (31.0-37.0) g/dL RDW (11.5-15.5) % Plt Count (150-450) k/uL Neutrophils % % Lymphocytes % % Monocytes % % Eosinophils % % Basophils % % Neutrophils # (1.3-7.7) k/uL Lymphocytes # (1.0-4.8) k/uL Monocytes # (0-1.0) k/uL Eosinophils # (0-0.7) k/uL Basophils # (0-0.2) k/uL ESR (0-15) mm/hr Sodium (137-145) mmol/L Potassium (3.5-5.1) mmol/L Chloride (98-107) mmol/L Carbon Dioxide (22-30) mmol/L Anion Gap mmol/L BUN (9-20) mg/dL Creatinine (0.66-1.25) mg/dL Est GFR (CKD-EPI)AfAm (>60 ml/min/1.73 sqM) Est GFR (CKD-EPI)NonAf (>60 ml/min/1.73 sqM) Glucose (74-99) mg/dL Plasma Lactic Acid Kayden (0.7-2.0) mmol/L Calcium (8.4-10.2) mg/dL Total Bilirubin (0.2-1.3) mg/dL AST (17-59) U/L ALT (4-49) U/L Alkaline Phosphatase (38-126) U/L C-Reactive Protein (<10.0) mg/L Total Protein (6.3-8.2) g/dL Albumin (3.5-5.0) g/dL Coronavirus (PCR) Not Detected (Not Detectd) Disposition Clinical Impression: Fever, Lymphangitis, Cellulitis Disposition: ADMITTED IP TO THIS HOSP Condition: Fair Is patient prescribed a controlled substance at d/c from ED?: No Time of Disposition: 00:17
[2019-08-09 01:49] LABS: Amphetamine Screen,Urine Detected (NotDetected); Barbiturate Screen,Urine Not Detected (NotDetected); Benzodiazepines Screen,Urine Not Detected (NotDetected); Cocaine Screen,Urine Not Detected (NotDetected); Methadone Screen, Urine Not Detected (NotDetected); Opiate Screen,Urine Not Detected (NotDetected); Oxycodone Screen, Urine Not Detected (NotDetected); Phencyclidine Screen,Urine Not Detected (NotDetected); Tricyclic Antidepressant,Urine Not Detected (NotDetected); Urn Cannabinoid Scrn Not Detected (NotDetected)
--- NOTE | 2019-08-09 02:43 | P.HPIM ---
History of Present Illness H&P Date: 08/09/19 The patient is a 34-year-old male with no known PMH who presented to the ED with complaints of right hand swelling and pain. The patient reports that his symptoms started precisely after 2 PM when he cut his hand while working on a broken metal fan. He reports a small cut on the palm of the right hand, after which his thumb and index finger along with his lateral aspect of the palm became exquisitely tender, tense, and swollen. He reports that his symptoms gradually worsened throughout the day, which prompted him to come to the ED. He notes that he is able to partially flex his R 3rd-5th digits though has minimal flexion of the R 1st and 2nd digits due to pain. He notes minimal pain at rest. Denied loss of sensation of the hand or fingers. The patient denied any additional injuries, bites, or use of IV drugs. 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 He otherwise denied any additional complaints. He denied fever, chills, chest pain, or shortness of breath. He also denied cough, sore throat, nausea, vomiting, or abdominal pain. He denied headaches, or visual disturbances. Upon presentation, he had a T-max of 100.8 in the emergency room, with pulse of 104, BP 139/98, and was saturating 99% on room air. He underwent an extensive evaluation with WBC count 16.3, hemoglobin 15, platelets 376, sodium 135, potassium 3.9, BUN 15, creatinine 1.35, CRP 16.4, and lactic acid 1.1, with coronavirus PCR negative. Right hand x-ray revealed soft tissue injury with no acute fracture or dislocation noted. Review of Systems Pertinent positives and negatives as discussed in HPI, a complete review of systems was performed and all other systems are negative. Past Medical History Past Medical History: No Reported History History of Any Multi-Drug Resistant Organisms: None Reported Past Surgical History: No Surgical Hx Reported Additional Past Surgical History / Comment(s): tendon surgery Past Psychological History: ADD/ADHD, Anxiety, PTSD Smoking Status: Current every day smoker Past Alcohol Use History: None Reported Past Drug Use History: Marijuana Medications and Allergies Home Medications Medication Instructions Recorded Confirmed Type Dextroamphetamine/Amphetamine 30 mg PO BID 08/08/19 08/08/19 History [Adderall] Allergies Allergy/AdvReac Type Severity Reaction Status Date / Time No Known Allergies Allergy Verified 08/08/19 22:22 Physical Exam Vitals: Vital Signs Temp Pulse Pulse Resp BP BP Pulse Ox 08/09/19 01:40 98.3 F 108 H 17 130/83 100 08/09/19 01:13 98.4 F 80 18 143/103 98 08/08/19 23:41 100.8 F H 104 H 18 139/98 99 08/08/19 22:20 102 H 18 132/97 100 08/08/19 21:36 99.1 F 08/08/19 21:06 118 H 97 08/08/19 20:39 99.0 F 126 H 20 145/90 98 Intake and Output 08/08/19 08/08/19 08/09/19 14:59 22:59 06:59 Intake Total 350 Balance 350 Intake: Oral 350 Other: Weight 60.917 kg General: non toxic, no distress, appears at stated age, normal weight Derm: R hand tenderness and erythema around the 2nd metacarpal with decreased ROM of the 1st and 2nd digits, small 1 cm puncture wound without surrounding erythema overlying 2nd and 3rd metacarpals, radial pulses intact sofia with brisk capillary refills, wrist ROM wnl, mild tracking of erythema along the medial anterior aspect of arm noted, unable to palpate for fluctuance as patient with guarding Head: atraumatic, normocephalic, symmetric Eyes: EOMI, no lid lag, anicteric sclera, pupils equal round reactive to light ENT: Nose and ears atraumatic, no thrush, no pharyngeal erythema Neck: No thyromegaly, no cervical lymphadenopathy, trachea midline, supple Mouth: no lip lesion, mucus membranes moist Cardiovascular: S1S2 reg, no murmur, positive posterior tibial pulse bilateral, no edema, capillary refill less than 2 seconds Lungs: CTA bilateral, no rhonchi, no rales , no accessory muscle use Abdominal: soft, nontender to palpation, no guarding, no appreciable organomegaly, normal bowel sounds Ext: no gross muscle atrophy, muscle strength 5 out of 5 in all 4 extremities grossly, no contractures Neuro: CN II-XI grossly intact, light touch intact all 4 extremities, finger to nose within normal limits, Psych: Alert, oriented, appropriate affect Results CBC & Chem 7: 08/08/19 21:30 08/08/19 21:30 Labs: Abnormal Lab Results - Last 24 Hours (Table) 08/08/19 08/08/19 08/09/19 Range/Units 21:30 21:30 01:10 WBC 16.3 H (3.8-10.6) k/uL Neutrophils # 13.2 H (1.3-7.7) k/uL ESR 18 H (0-15) mm/hr Sodium 135 L (137-145) mmol/L Creatinine 1.35 H (0.66-1.25) mg/dL C-Reactive Protein 16.4 H (<10.0) mg/L Ur Amphetamines Screen Detected H (NotDetected) U Methamphetamines Scrn Detected H (NotDetected) Assessment and Plan Plan: R hand pain and swelling with erythema, in setting of injury, possibly lymphangitis vs subcutaneous abscess -Will c/w Vancomycin and Ceftriaxone for now -Obtain hand-surgery and ID consults -C/w IVFs -F/u blood cultures -Demarcate the area of erythema Elevated Creatinine -No previous baseline available -Monitor for now DVT prophylaxis -Heparin subq The patient is admitted with an anticipated less than 2 midnight stay for evaluation of hand infection CODE STATUS: Full Code Discussed with: Patient Anticipated discharge date: 1-[address]: Home A total of 40 minutes was spent on the care of this complex patient more than 50% of the time was spent in counseling and care coordination.
[2019-08-09] MEDS: SODIUM CHLORIDE 0.9% 1,000 ML IV SCH ×4 (03:12→23:33)
[2019-08-09 08:05] LABS: HCT 43.9 % (39.0-53.0); MCH 31.3 pg (25.0-35.0); MCHC 34.2 g/dL (31.0-37.0); MCV 91.7 fL (80.0-100.0); Mean Platelet Volume 6.7; Platelet Count 328 k/uL (150-450); RBC 4.79 m/uL (4.30-5.90); RDW 12.7 % (11.5-15.5); WBC 13.9 k/uL (3.8-10.6)
[2019-08-09 08:15] LABS: African American GFR (CKD) >90 (>60 ml/min/1.73 sqM); Anion Gap 6 mmol/L; Blood Urea Nitrogen 15 mg/dL (9-20); Calcium 8.4 mg/dL (8.4-10.2); Carbon Dioxide 26 mmol/L (22-30); Chloride 105 mmol/L (98-107); Glucose 90 mg/dL (74-99); Non-African American GFR(CKD) >90 (>60 ml/min/1.73 sqM); Potassium 4.1 mmol/L (3.5-5.1); Sodium 137 mmol/L (137-145)
[2019-08-09] MEDS: HEPARIN SODIUM,PORCINE 5,000 UNIT/ML 1 ML VIAL SQ SCH ×3 (08:44→23:34)
[2019-08-09] MEDS ORDERED: VANCOMYCIN 1,250 MG in SODIUM CHLORIDE 0.9% 250 ML IVPB SCH (12:00)
[2019-08-09] MEDS: VANCOMYCIN 1,000 MG in SODIUM CHLORIDE 0.9% 250 ML IVPB SCH ×2 (13:21→21:48)
--- NOTE | 2019-08-09 13:21 | P.CNOR ---
History of Present Illness - [facility] Consult date: 08/09/19 Consult reason: other History of present illness: Patient is a 34-year-old male seen at bedside this am in consultation for right hand pain and infection. He presented to the emergency department late last night for a chief complaint of injury to the right hand yesterday. Patient states he thinks he cut his hand working on a metal fan. he has pain mostly with moving his right index finger. he has noted swelling and some redness also about the right hand. He is currently denying numbness or tingling. He is d enying illicit drug use. Denies any other complaints. He denies fevers or chills, shortness of breath, chest pain, abdominal pain, nausea or vomiting, headache, or visual changes Review of Systems All systems: negative Constitutional: Denies chills, Denies fever Eyes: denies blurred vision, denies pain Ears, nose, mouth and throat: Denies headache, Denies sore throat Cardiovascular: Denies chest pain, Denies shortness of breath Respiratory: Denies cough Gastrointestinal: Denies abdominal pain, Denies diarrhea, Denies nausea, Denies vomiting Musculoskeletal: Denies myalgias Integumentary: Denies pruritus, Denies rash Neurological: Denies numbness, Denies weakness Psychiatric: Denies anxiety, Denies depression Endocrine: Denies fatigue, Denies weight change Past Medical History Past Medical History: No Reported History History of Any Multi-Drug Resistant Organisms: None Reported Past Surgical History: No Surgical Hx Reported Additional Past Surgical History / Comment(s): tendon surgery Past Psychological History: ADD/ADHD, Anxiety, PTSD Smoking Status: Current every day smoker Past Alcohol Use History: None Reported Past Drug Use History: Marijuana Medications and Allergies Home Medications Medication Instructions Recorded Confirmed Type Dextroamphetamine/Amphetamine 30 mg PO BID 08/08/19 08/08/19 History [Adderall] Allergies Allergy/AdvReac Type Severity Reaction Status Date / Time No Known Allergies Allergy Verified 08/08/19 22:22 Physical Examination Inspection of right hand shows mild diffuse swelling and erythema. It is not hot to touch. There is a very small laceration/wound at the palmar surface mid hand along the first and second ray. There is no active bleeding or drainage. He has painless flexion and extension with all digits except the index finger. The flexor and extensor tendons are intact. Motor and sensation is fully intact throughout the right arm, hand and digits. 2+ radial pulse present and less than 2 sec cap refill present in all digits. Results Hand exray is negative for fractures, lesions or gas in tissue - Labs Labs: Abnormal Lab Results - Last 24 Hours (Table) 08/08/19 08/08/19 08/09/19 Range/Units 21:30 21:30 01:10 WBC 16.3 H (3.8-10.6) k/uL Neutrophils # 13.2 H (1.3-7.7) k/uL ESR 18 H (0-15) mm/hr Sodium 135 L (137-145) mmol/L Creatinine 1.35 H (0.66-1.25) mg/dL C-Reactive Protein 16.4 H (<10.0) mg/L Ur Amphetamines Screen Detected H (NotDetected) U Methamphetamines Scrn Detected H (NotDetected) 08/09/19 Range/Units 07:23 WBC 13.9 H (3.8-10.6) k/uL Neutrophils # (1.3-7.7) k/uL ESR (0-15) mm/hr Sodium (137-145) mmol/L Creatinine (0.66-1.25) mg/dL C-Reactive Protein (<10.0) mg/L Ur Amphetamines Screen (NotDetected) U Methamphetamines Scrn (NotDetected) H & H 08/08/19 08/09/19 Range/Units 21:30 07:23 Hgb 15.0 15.0 (13.0-17.5) gm/dL Hct 43.4 43.9 (39.0-53.0) % Result Diagrams: 08/09/19 07:23 08/09/19 07:23 Assessment and Plan (1) Cellulitis Narrative/Plan: There does not appear to be an area that requires immediate surgical intervention. Recommend continued IV antibiotics, warm soapy soaks 3x/day and elevation. May consider adding corticosteroids pending his exam and overall findings tomorrrow. We will continue to monitor. Current Visit: Yes Status: Acute Priority: Medium Code(s): L03.90 - CELLULITIS, UNSPECIFIED SNOMED Code(s): 855969409 (2) Flexor tenosynovitis of finger Current Visit: Yes Status: Acute Priority: Medium Code(s): M65.9 - SYNOVITIS AND TENOSYNOVITIS, UNSPECIFIED SNOMED Code(s): 091525723 Time with Patient: Less than 30
[2019-08-09] MEDS ORDERED: ONDANSETRON 4 MG/2 ML VIAL IVP PRN (20:27)
[2019-08-09] MEDS ORDERED: HYDROcodone/APAP 5-325MG 1 EACH TAB PO PRN (20:27)
--- NOTE | 2019-08-09 20:28 | P.PN ---
Progress Note - Text Hospitalist Interval Note Patient seen and examined at bedside. Sleeping, pain is slightly better than yesterday, no chest pain or shortness of breath Vital signs reviewed General: non toxic, no distress, appears at stated age Derm: warm, dry Head: atraumatic, normocephalic, symmetric Eyes: EOMI, no lid lag, anicteric sclera Mouth: no lip lesion, mucus membranes moist Cardiovascular: S1S2 reg, no murmur, positive posterior tibial pulse bilateral, Lungs: CTA bilateral, no rhonchi, no rales , no accessory muscle use Abdominal: soft, nontender to palpation, no guarding, no appreciable organomegaly Ext: Right hand with erythema from wrist distal, nothing proximal. no gross muscle atrophy, no edema, no contractures Neuro: CN II-XI grossly intact, no focal neuro deficits Psych: Alert, oriented, appropriate affect Assessment/Plan: Right hand cellulitis with possible lymphangitis with sepsis -Continue with Vanco, ceftriaxone -Orthopedic recommendations appreciated -Await infectious disease recommendations -Follow blood cultures Tobacco abuse -Cessation -Nicotine replacement Acute kidney injury, resolved This is an update note for patient , for full note on 08/08 see H&P. There is no charge associated with this note.
--- NOTE | 2019-08-09 23:36 | P.CONS ---
History of Present Illness - Reason for Consult Consult date: 08/09/19 right arm cellulitis Requesting physician: Wesley Murphy - Chief Complaint right hand and arm swelling and pain x 1 day - History of Present Illness Patient is a 34-year male presenting to the ER last night with chief complaints of right hand pain swelling and redness apparently the patient said he was working on a friend and has received cut to his right hand at the base of the thumb patient subsequently noticed the area becoming swollen and red with redness spreading to the palmar aspect of his right forearm patient described the pain to be throbbing almost underlying by the time he presented hospital with with the symptom the patient was evaluated by the ER physician on arrival to the ER patient was afebrile subsequently spiked a fever 100.8 F patient did have white count of 16.3 urine testing was positive for her methamphetamines chronic PCR was negative patient did have x-rays of the hand which did not show any acute fracture or this location patient was started on vancomycin and Rocephin and admitted to hospital infectious was consulted for further recommendation regarding antibiotic therapy. Review of Systems Positive point has been mentioned in HPI rest of the systems are negative Past Medical History Past Medical History: No Reported History History of Any Multi-Drug Resistant Organisms: None Reported Past Surgical History: No Surgical Hx Reported Additional Past Surgical History / Comment(s): tendon surgery Past Psychological History: ADD/ADHD, Anxiety, PTSD Smoking Status: Current every day smoker Past Alcohol Use History: None Reported Past Drug Use History: Marijuana Medications and Allergies Home Medications Medication Instructions Recorded Confirmed Type Dextroamphetamine/Amphetamine 30 mg PO BID 08/08/19 08/08/19 History [Adderall] Allergies Allergy/AdvReac Type Severity Reaction Status Date / Time No Known Allergies Allergy Verified 08/08/19 22:22 Physical Exam Vitals: Vital Signs Temp Pulse Pulse Resp BP BP Pulse Ox 08/09/19 07:00 98.4 F 73 18 95/55 100 08/09/19 03:50 98.4 F 94 122/75 98 08/09/19 01:40 98.3 F 108 H 17 130/83 100 08/09/19 01:13 98.4 F 80 18 143/103 98 08/08/19 23:41 100.8 F H 104 H 18 139/98 99 08/08/19 22:20 102 H 18 132/97 100 08/08/19 21:36 99.1 F 08/08/19 21:06 118 H 97 08/08/19 20:39 99.0 F 126 H 20 145/90 98 Intake and Output 08/09/19 08/09/19 08/09/19 06:59 14:59 22:59 Intake Total 350 Balance 350 Intake: Oral 350 Other: # Voids 1 3 Weight 60.917 kg GENERAL DESCRIPTION: Middle-aged male lying in bed, no distress. No tachypnea or accessory muscle of respiration use. HEENT: Shows Pallor , no scleral icterus. Oral mucous membrane is dry. NECK: Trachea central, no thyromegaly. LUNGS: Unlabored breathing. Clear to auscultation anteriorly. No wheeze or crackle. HEART: S1, S2, regular rate and rhythm. ABDOMEN: Soft, no tenderness , guarding or rigidity EXTREMITIES: Right hand with minimal swelling at the base of the thumb with the swelling and the redness on the palmar aspect of the right hand seem to have decreased from the line that was placed earlier SKIN: No rash, no masses palpable. NEUROLOGICAL: The patient is awake, alert, oriented x3, mood and affect normal. Results CBC & Chem 7: 08/09/19 07:23 08/09/19 07:23 Labs: Abnormal Lab Results - Last 24 Hours (Table) 08/08/19 08/08/19 08/09/19 Range/Units 21:30 21:30 01:10 WBC 16.3 H (3.8-10.6) k/uL Neutrophils # 13.2 H (1.3-7.7) k/uL ESR 18 H (0-15) mm/hr Sodium 135 L (137-145) mmol/L Creatinine 1.35 H (0.66-1.25) mg/dL C-Reactive Protein 16.4 H (<10.0) mg/L Ur Amphetamines Screen Detected H (NotDetected) U Methamphetamines Scrn Detected H (NotDetected) 08/09/19 Range/Units 07:23 WBC 13.9 H (3.8-10.6) k/uL Neutrophils # (1.3-7.7) k/uL ESR (0-15) mm/hr Sodium (137-145) mmol/L Creatinine (0.66-1.25) mg/dL C-Reactive Protein (<10.0) mg/L Ur Amphetamines Screen (NotDetected) U Methamphetamines Scrn (NotDetected) Assessment and Plan Assessment: 1-patient was in the hospital with sepsis in this patient did have a fever tachycardia red elevated white count source is right upper extremity cellulitis in this patient respect including a trauma with cut at the base of the thumb x- rays do not show any bony changes clinically not behaving as a abscess more likely cellulitis and likely from gram-positive skin shalom in view of rapid progression more likely a streptococcal infection with MRSA (1) Sepsis Current Visit: Yes Status: Acute Code(s): A41.9 - SEPSIS, UNSPECIFIED ORGANISM SNOMED Code(s): 03873291 (2) Right arm cellulitis Current Visit: Yes Status: Acute Code(s): L03.113 - CELLULITIS OF RIGHT UPPER LIMB SNOMED Code(s): 072590121 Plan: 1-in view of clinical response will continue with the patient on vancomycin pharmacy to dose and Rocephin 2-we will wait for the culture to finalize and white count normalized before transitioning him to the oral antibiotics We will follow on clinical condition and cultures to further adjust medication if needed Thank you for this consultation we will follow the patient along with you Time with Patient: Greater than 30
[2019-08-09] MEDS ORDERED: cefTRIAXone IN SWFI 1,000 MG/10 ML SYRINGE IVP SCH (23:59)
[2019-08-10 06:58] LABS: HCT 44.7 % (39.0-53.0); MCH 30.7 pg (25.0-35.0); MCHC 33.6 g/dL (31.0-37.0); MCV 91.3 fL (80.0-100.0); Mean Platelet Volume 6.8; Platelet Count 324 k/uL (150-450); RBC 4.89 m/uL (4.30-5.90); WBC 9.2 k/uL (3.8-10.6)
[2019-08-10 07:09] LABS: African American GFR (CKD) >90 (>60 ml/min/1.73 sqM); Anion Gap 6 mmol/L; Blood Urea Nitrogen 9 mg/dL (9-20); Calcium 8.8 mg/dL (8.4-10.2); Carbon Dioxide 25 mmol/L (22-30); Chloride 106 mmol/L (98-107); Glucose 100 mg/dL (74-99); Non-African American GFR(CKD) >90 (>60 ml/min/1.73 sqM); Potassium 4.4 mmol/L (3.5-5.1); Sodium 137 mmol/L (137-145)
[2019-08-10] MEDS: HEPARIN SODIUM,PORCINE 5,000 UNIT/ML 1 ML VIAL SQ SCH (08:13)
[2019-08-10] MEDS: SODIUM CHLORIDE 0.9% 1,000 ML IV SCH (08:16)
[2019-08-10 08:19] VITALS: BP 104/72; PULSE 66; TEMP 98
[2019-08-10 09:50] VITALS: RESP 16
--- NOTE | 2019-08-10 13:58 | PN ---
PROGRESS NOTE DATE OF SERVICE: 08/10/2019 REASON FOR FOLLOWUP: Right hand and forearm cellulitis. INTERVAL HISTORY: The patient is currently afebrile, has been breathing comfortably. The overall swelling and redness to the right forearm has improved, pain has decreased. Currently no drainage. No chest pain or cough. No abdominal pain, diarrhea. PHYSICAL EXAMINATION: Blood pressure 104/72 with a pulse of 56, temperature 98, he is 98% on room air. General description is a middle-aged male, lying in bed in no distress. RESPIRATORY SYSTEM: Unlabored breathing, clear to auscultation anteriorly. HEART: S1, S2. Regular rate and rhythm. ABDOMEN: Soft, no tenderness. Right hand swelling and redness has improved. LABS: Hemoglobin is 15, white count of 9.2, BUN of 9, creatinine 0.75. Blood culture has been negative. DIAGNOSTIC IMPRESSION AND PLAN: Patient with right hand cellulitis with lymphangitis in this patient, rapid progression, more likely representing streptococcal disease. Patient clinically responding to cefazolin. Will finish therapy with oral Keflex 500 mg p.o. q.6 hours for 7 days. Care was discussed with the admitting working on discharge. MMODL / IJN: [id number] /
--- NOTE | 2019-08-10 17:04 | P.PN ---
Subjective Progress Note Date: 08/10/19 This patient is a 34-year-old male that is being followed for right hand cellulitis. The patient has been maintained on IV antibiotics, per Dr. Brewer. He states he has been soaking his hand, which makes his hand feel better. He states overall, he believes the pain and swelling in his right hand has improved overnight. He describes minimal pain with flexion and extension of all digits. He states he is feeling very well today, and has no new complaints. He denies fevers, chills, nausea, vomiting. Vital signs stable. Objective - Vital Signs Vital signs: Vital Signs Temp 98.0 F 08/10/19 07:00 Pulse 66 08/10/19 07:00 Resp 16 08/10/19 08:30 BP 104/72 08/10/19 07:00 Pulse Ox 98 08/10/19 07:00 Intake & Output 08/09/19 08/10/19 08/10/19 18:59 06:59 18:59 Intake Total 1090 Balance 1090 Intake: Intake, IV Titration 130 Amount Sodium Chloride 0.9% 1, 130 000 ml @ 130 mls/hr IV . Q7H42M [facility] Rx#:[id number] Oral 960 Other: # Voids 3 1 1 - Exam On examination, the patient is sitting in bed in no apparent distress. He is alert and oriented 3. On inspection of the right upper extremity, there is mild, diffuse swelling of the hand. There is no streaking apparent on exam today. There is a superficial, healing laceration at the base of the thumb and index finger. There is no active bleeding, drainage. There is no area of fluctuance. There is mild pain with passive flexion and extension of the index finger. Patient is able to flex and extend all digits or thumb without pain. Flexor and extensor tendons intact. Motor and sensory is intact of the right upper extremity. Right upper extremity is warm and well-perfused with brisk capillary refill distally. - Labs CBC & Chem 7: 08/10/19 06:22 08/10/19 06:22 Labs: Abnormal Lab Results - Last 24 Hours (Table) 08/10/19 Range/Units 06:22 Glucose 100 H (74-99) mg/dL Microbiology - Last 24 Hours (Table) 08/08/19 21:30 Blood Culture - Preliminary Blood No Growth after 24 hours Assessment and Plan Assessment: Right hand cellulitis, improving. Plan: - Recommended we continue with conservative treatment at this time. Clinically, the patient appears to be improving. Recommended continue with warm water soaks and IV antibiotics, under the discretion of the infectious disease. - Patient should continue elevation for swelling control. - We will continue to follow patient and make recommendations as needed.
--- NOTE | 2019-08-10 19:35 | P.DS ---
Providers Date of admission: 08/09/19 01:17 Expected date of discharge: 08/10/19 Attending physician: Sajan Schmidt MD Consults: 08/09/19 00:09 Consult Physician Routine Consulting Provider: Reema Brewer Consult Reason/Comments: lymphangitis, Right hand infection Do you want consulting provider notified?: Yes 08/09/19 03:14 Consult Physician Routine Consulting Provider: Elizabeth Nur Consult Reason/Comments: hand evaluation Do you want consulting provider notified?: Yes, Notify in am Primary care physician: Stated None Hospital Course: Discharge Diagnosis: Right hand cellulitis with probable lymphangitis, likely streptococcal in origin with sepsis Tobacco abuse Acute kidney injury Hospital Course: Patient is a 34-year-old male with no significant past medical history who presented to the emergency department with complaints of right hand swelling and pain. In the ER he underwent an extensive evaluation. He did spike a fever of 100.8 was found have a white blood cell count of 16.3. There is concern for cellulitis the right hand with sepsis he was given a dose of Rocephin and vancom ycin. He is admitted for further monitoring. He was seen by orthopedic surgery who recommended conservative management with soaks 3 times daily and antibiotics. He was seen by infectious disease who felt this was likely streptococcal in origin. They switched him to ceftezole and. By the morning of 08/09 his cellulitis had completely resolved, swelling was much decreased in his right hand, and he is better able to move his digits. He was determined stable for discharge. Will complete an additional 7 days of Keflex. He'll follow up with Candace Bernstein nurse practitioner on 08/12 at 1:10 PM. He will follow-up with orthopedic surgery in 1-2 weeks. Patient seen and examined at bedside. Swelling and pain improved. Axillary discharge. No other complaints currently. Vital signs reviewed and stable. General: non toxic, no distress, appears at stated age Derm: Multiple tattoos warm, dry Head: atraumatic, normocephalic, symmetric Eyes: EOMI, no lid lag, anicteric sclera Mouth: no lip lesion, mucus membranes moist Cardiovascular: S1S2 reg, no murmur, positive posterior tibial pulse bilateral, Lungs: CTA bilateral, no rhonchi, no rales , no accessory muscle use Abdominal: soft, nontender to palpation, no guarding, no appreciable organomegaly Ext: Right hand without erythema or warmth, good range of motion of all fingers no gross muscle atrophy, no edema, no contractures Neuro: CN II-XI grossly intact, no focal neuro deficits Psych: Alert, oriented, appropriate affect A total of 37 minutes of time were spent preparing this complex discharge summary . Patient Condition at Discharge: Fair Plan - Discharge Summary Discharge Rx Participant: Yes New Discharge Prescriptions: New Cephalexin [Keflex] 500 mg PO Q6HR 28 Days #7 cap Continue Dextroamphetamine/Amphetamine [Adderall] 30 mg PO BID Discharge Medication List Dextroamphetamine/Amphetamine [Adderall] 30 mg PO BID 08/08/19 [History] Cephalexin [Keflex] 500 mg PO Q6HR 28 Days #7 cap 08/10/19 [Rx] Follow up Appointment(s)/Referral(s): Ruben Campbell PAC [PHYSICIAN [employer] HELPER] - 1 Week (office not answering Please call to make appointment) Tino Glass MD [STAFF PHYSICIAN] - 1 Week (office will not make appointment) None,Stated [Primary Care Provider] - 1-2 days Candace Bernstein NPC [Nurse Practitioner] - 08/13/19 1:10 pm Patient Instructions/Handouts: Cellulitis (DC) Activity/Diet/Wound Care/Special Instructions: Activity: as tolerated Diet: regular Wound Care: warm soapy soaks 3 times daily for 5 days Discharge Disposition: HOME SELF-CARE
== END 2019-08-10 15:35 | disposition home or self-care (01) ==
LOC: EC 20:25 → 4SSUR 08-09 01:17
PROVIDERS: ADMIT Internal Medicine; ATTEND Internal Medicine
DX: A41.9 Sepsis, unspecified organism (principal); L03.113 Cellulitis of right upper limb; S61.411A Laceration without foreign body of right hand, initial encounter; F17.200 Nicotine dependence, unspecified, uncomplicated; F43.10 Post-traumatic stress disorder, unspecified; F90.9 Attention-deficit hyperactivity disorder, unspecified type; M65.9 Synovitis and tenosynovitis, unspecified; N17.9 Acute kidney failure, unspecified; Z23 Encounter for immunization; Z03.818 Encounter for observation for suspected exposure to other biological agents ruled out; W26.8XXA Contact with other sharp object(s), not elsewhere classified, initial encounter; Z71.6 Tobacco abuse counseling
CPT/HCPCS: 96365 ×2; 96366 ×2; 96361; 99285; 36415; 80053; 80048 ×2; 85652; 83605; 85025; 85027 ×2; 86140; 87040; 80306; 87635; 73130; 90715; G0378 ×2; J3370; J0690; J0696 ×2

== ENCOUNTER 2020-01-28 22:49 | Emergency (ER) | payer OTHER ==
[2020-01-28 22:54] LABS: Glucose,Whole Blood 98 mg/dL (75-99)
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
[2020-01-28 23:11] LABS: Basophils # (A) 0.1 k/uL (0-0.2); Basophils % (A) 1 %; Eosinophils # (A) 0.2 k/uL (0-0.7); Eosinophils % (A) 2 %; HCT 45.2 % (39.0-53.0); HGB 15.3 gm/dL (13.0-17.5); Lymphocytes # (A) 1.6 k/uL (1.0-4.8); Lymphocytes % (A) 26 %; MCH 31.3 pg (25.0-35.0); MCHC 33.9 g/dL (31.0-37.0); MCV 92.3 fL (80.0-100.0); Mean Platelet Volume 6.4; Monocytes # (A) 0.4 k/uL (0-1.0); Monocytes % (A) 7 %; Neutrophils # (A) 3.8 k/uL (1.3-7.7); Neutrophils % (A) 60 %; Platelet Count 341 k/uL (150-450); RDW 12.1 % (11.5-15.5); WBC 6.2 k/uL (3.8-10.6)
[2020-01-28 23:17] LABS: ALT 59 U/L (4-49); AST 78 U/L (17-59); African American GFR (CKD) >90 (>60 ml/min/1.73 sqM); Albumin 4.4 g/dL (3.5-5.0); Alcohol <10 mg/dL; Alkaline Phosphatase 73 U/L (38-126); Anion Gap 7 mmol/L; Blood Urea Nitrogen 7 mg/dL (9-20); Calcium 9.3 mg/dL (8.4-10.2); Carbon Dioxide 29 mmol/L (22-30); Chloride 101 mmol/L (98-107); Glucose 97 mg/dL (74-99); Non-African American GFR(CKD) >90 (>60 ml/min/1.73 sqM); Potassium 3.4 mmol/L (3.5-5.1); Sodium 137 mmol/L (137-145); Total Bilirubin 0.4 mg/dL (0.2-1.3); Total Protein 7.2 g/dL (6.3-8.2)
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
[2020-01-28 23:43] LABS: INR 0.9 (<1.2); Partial Thromboplastin Time 25.2 sec (22.0-30.0); Prothrombin Time 9.7 sec (9.0-12.0)
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
[2020-01-29] MEDS ORDERED: KETOROLAC 15 MG/ML 1 ML VIAL IVP STA (00:58)
[2020-01-29] MEDS ORDERED: MORPHINE SULFATE 4 MG/ML SYRINGE IVP STA (00:58)
[2020-01-29 01:23] LABS: Appearance,Urine Clear (Clear); Bilirubin,Urine Negative (Negative); Blood,Urine Negative (Negative); Color,Urine Colorless; Glucose,Urine (UA) Negative (Negative); Ketones,Urine Negative (Negative); Leukocyte Esterase,Urine Negative (Negative); Nitrite,Urine Negative (Negative); Protein,Urine Negative (Negative); Specific Gravity,Urine 1.022 (1.001-1.035); Urobilinogen,Urine <2.0 mg/dL (<2.0)
[2020-01-29 01:58] LABS: Amphetamine Screen,Urine Detected (NotDetected); Barbiturate Screen,Urine Not Detected (NotDetected); Benzodiazepines Screen,Urine Not Detected (NotDetected); Cocaine Screen,Urine Not Detected (NotDetected); Methadone Screen, Urine Not Detected (NotDetected); Opiate Screen,Urine Not Detected (NotDetected); Oxycodone Screen, Urine Not Detected (NotDetected); Phencyclidine Screen,Urine Not Detected (NotDetected); Tricyclic Antidepressant,Urine Not Detected (NotDetected); Urn Cannabinoid Scrn Not Detected (NotDetected)
[2020-01-29 02:49] VITALS: BP 137/90; PULSE 92; RESP 18; TEMP 98.2
== END 2020-01-29 02:20 | disposition home or self-care (01) ==
LOC: EC 22:49
DX: S06.0X9A Concussion with loss of consciousness of unspecified duration, initial encounter (principal); F90.9 Attention-deficit hyperactivity disorder, unspecified type; F41.9 Anxiety disorder, unspecified; Z79.899 Other long term (current) drug therapy; V23.4XXA Motorcycle driver injured in collision with car, pick-up truck or van in traffic accident, initial encounter; Y93.89 Activity, other specified; Y92.410 Unspecified street and highway as the place of occurrence of the external cause
CPT/HCPCS: 36415; 93005; 86900; 86901; 80053; 84484; 85025; 85610; 85730; 86850; 80320; 72170; 71045; 72125; 70486; 70450; 71260; 74177; 99285; 96374; 96375; Q9967; 80306; 81003